=== PATIENT | female | born 2000 | race Two or more races ===

== ENCOUNTER 2020-11-15 15:47 | Emergency (ER) | payer BC ==
[~2020-11-15] VITALS: Ht 170.2 cm; Wt 68.2 kg
[2020-11-15 18:16] LABS: BASOPHILS % (AUTO) 0 % (0-1); EOSINOPHILS % (AUTO) 0 % (1-7); LYMPHOCYTES % (AUTO) 19 % (22-44); MEAN CORPUSCULAR HEMOGLOBIN 32.5 pg (27.0-34.8); MEAN CORPUSCULAR HGB CONC 34.5 g/dL (32.4-35.8); MEAN PLATELET VOLUME 8.9 fL (7.4-10.4); MONOCYTES % (AUTO) 5 % (2-9); NEUTROPHILS % (AUTO) 76 % (42-75); PLATELET COUNT 248 x10^3/uL (130-400); RED BLOOD COUNT 4.97 x10^6/uL (3.82-5.3); RED CELL DISTRIBUTION WIDTH 12.9 % (9.6-15.2)
[2020-11-15 18:29] LABS: ALBUMIN 4.7 g/dL (3.4-5.0); ANION GAP 7 mmol/L (5-15); CALCIUM 9.6 mg/dL (8.5-10.1); CHLORIDE 106 mmol/L (98-107)
[2020-11-15 18:35] LABS: ALANINE AMINOTRANSFERASE 38 U/L (12-78); ALKALINE PHOSPHATASE 77 U/L (45-117); BILIRUBIN,TOTAL 1.5 mg/dL (0.2-1.0); CREATININE 0.73 mg/dL (0.55-1.02); TOTAL PROTEIN 8.3 g/dL (6.4-8.2)
[2020-11-15 18:56] LABS: MD NO
--- NOTE | 2020-11-15 19:52 | NUR ---
pt resting in [facility], on continous pulse ox and bp cuff. urine collecgted and sent. pt states she will call when she is able to provide stool sample.
[2020-11-15 19:57] LABS: MICROSCOPIC NOT IND
[2020-11-15 21:08] VITALS: BP 121/69
== END 2020-11-15 21:22 | disposition home or self-care (01) ==
LOC: ED 21:00
DX: K62.5 Hemorrhage of anus and rectum (principal); R79.89 Other specified abnormal findings of blood chemistry
CPT/HCPCS: 36415; 80053; 81003; 84703; 85025; 99283

== ENCOUNTER 2021-01-03 17:17 | Emergency (ER) | payer BC ==
[~2021-01-03] VITALS: Ht 170.2 cm; Wt 69.8 kg
--- NOTE | 2021-01-03 18:12 | NUR ---
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
--- NOTE | 2021-01-03 18:29 | NUR ---
PT STATES HAVING C DIF SINCE OCTOBER AND IS ON SECOND COURSE. PT REPORTS HAVING BLACK TARRY STOOLS TODAY AND YESTERDAY. PT CURRENTLY USING ORAL VANCOMYCIN. PATIENT POSTIONED TO COMFORT, ATTACHED TO MONITOR, VSS, NADN, SPECIAL CONTACT PRECAUTIONS IN PLACE. AWAITING ORDERS.
[2021-01-03 18:30] VITALS: BP 118/65
[2021-01-03 19:07] LABS: BASOPHILS % (AUTO) 1 % (0-1); EOSINOPHILS % (AUTO) 1 % (1-7); LYMPHOCYTES % (AUTO) 31 % (22-44); MEAN CORPUSCULAR HEMOGLOBIN 32.2 pg (27.0-34.8); MEAN CORPUSCULAR HGB CONC 34.2 g/dL (32.4-35.8); MEAN PLATELET VOLUME 8.6 fL (7.4-10.4); MONOCYTES % (AUTO) 8 % (2-9); NEUTROPHILS % (AUTO) 60 % (42-75); PLATELET COUNT 216 x10^3/uL (130-400); RED BLOOD COUNT 4.48 x10^6/uL (3.82-5.3); RED CELL DISTRIBUTION WIDTH 13.2 % (9.6-15.2)
--- NOTE | 2021-01-03 19:10 | NUR ---
REPORT GIVEN TO SMOOTH PA RN. JUANA, MABLE.
[2021-01-03 19:15] LABS: MD NO
[2021-01-03 19:17] LABS: ANION GAP 5 mmol/L (5-15); CALCIUM 8.7 mg/dL (8.5-10.1); CHLORIDE 110 mmol/L (98-107); CREATININE 0.75 mg/dL (0.55-1.02)
== END 2021-01-03 19:43 | disposition home or self-care (01) ==
LOC: ED 19:42
DX: A04.72 Enterocolitis due to Clostridium difficile, not specified as recurrent (principal); K92.1 Melena
CPT/HCPCS: 36415; 80048; 85025; 99283